=== PATIENT | male | born 1975 | race Two or more races ===

== ENCOUNTER 2020-10-29 09:00 | Outpatient (CLI) | payer OTHER | END 2020-10-29 23:59 | disposition home or self-care (01) | LOC: LAB 09:00 | PROVIDERS: ATTEND Specialist | DX: Z01.812 Encounter for preprocedural laboratory examination (principal); Z20.822 Contact with and (suspected) exposure to COVID-19 | CPT/HCPCS: C9803; U0003 ==

== ENCOUNTER 2020-11-03 06:07 | Day surgery (SDC) | payer OTHER ==
[~2020-11-03 06:07] MED LIST: ANESTHESIA TRAY IN PYXIS 1 EA TRAY MC ONE
[2020-11-03] MEDS ORDERED: BUPIVACAINE MPF 0.5% W/EPI INJ 30 ML VIAL ONE (06:11)
[2020-11-03] MEDS ORDERED: BUPIVACAINE 0.5 % PF 150 MG/30 ML VIAL ONE (06:12)
[2020-11-03] MEDS ORDERED: LIDOCAINE 1% INJ 50 ML MDV IJ ONE (06:12)
[2020-11-03] MEDS ORDERED: methylPREDNISolone ACETATE 80 MG/ML VIAL ONE (06:12)
[2020-11-03] MEDS ORDERED: FENTANYL PF 100MCG/2ML AMPUL ONE (06:50)
[2020-11-03] MEDS ORDERED: MIDAZOLAM HCL 2 MG/2ML VIAL ONE (06:51)
== END 2020-11-03 09:00 | disposition home or self-care (01) ==
LOC: DS 06:07
PROVIDERS: ATTEND Specialist
DX: S83.232A Complex tear of medial meniscus, current injury, left knee, initial encounter (principal); M94.262 Chondromalacia, left knee; X58.XXXA Exposure to other specified factors, initial encounter; Y93.89 Activity, other specified; Y92.89 Other specified places as the place of occurrence of the external cause; Y99.8 Other external cause status
CPT/HCPCS: 29881; A4217; A6253; J0690; J1040; J1100; J2250; J2405; J2704; J2765; J3010; J3490 ×2